=== PATIENT | female | born 1970 | race Caucasian/White ===

== ENCOUNTER 2019-01-22 15:59 | Emergency (ER) | payer MEDICAID ==
[~2019-01-22] VITALS: Ht 162.6 cm; Wt 61.2 kg
[2019-01-22 16:00] VITALS: BP_SYST 116
[2019-01-22] MEDS ORDERED: KETOROLAC TROMETHAMINE 60 MG/2 ML VIAL IM ONE (16:45)
[2019-01-22] MEDS ORDERED: PROCHLORPERAZINE EDISYLATE 10 MG/2 ML VIAL IM ONE (16:45)
[2019-01-22 18:45] VITALS: BP_SYST 102
== END 2019-01-22 18:45 | disposition home or self-care (01) ==
LOC: SED 15:59
DX: G44.209 Tension-type headache, unspecified, not intractable (principal)
CPT/HCPCS: 93005; 96372; 99283; J0780; J1885